=== PATIENT | female | born 1980 | race Caucasian/White ===

== ENCOUNTER → 2018-06-05 12:07 | Outpatient (CLI) | payer SELFPAY ==
--- NOTE | 2018-06-05 12:14 | US_ITS ---
STUDY: ULTRASOUND TRANSVAGINAL CLINICAL: Female, 38 years old. Enlarged uterus. TECHNIQUE: Transvaginal COMPARISON: None. FINDINGS: The uterus measures approximately 18.5 x 15.2 x 11.5 cm, enlarged. Anteverted position. Suspected large fibroid measuring 10.7 x 13.9 x 10.2 cm. Multiple nabothian cysts are clustered in the cervix. The endometrium is not well visualized. Likely obscured/compressed by the fibroid. The right ovary is not visible. There is no visualized right adnexal mass, cyst or free fluid. The right adnexa is partially obscured by the enlarged uterus. Left ovary measures 3.4 x 3.2 x 2.4 cm, partially obscured. There appears to be appropriate vascular flow to left ovary. There is no visible left adnexal mass, cyst or free fluid. There is no cul-de-sac free fluid. US/Pelvic (Non ) IMPRESSION: Enlarged uterus. Suspected large fibroid with a maximum dimension of 13.9 cm. Details of the right adnexa and in portions of the uterus are obscured by the transvaginal approach in the setting of markedly enlarged uterus. Follow-up transabdominal ultrasound for further assessment of the uterus and right adnexa is recommended. Electronically Signed: Joaquin Johnson, at 10:23 EST Tel , Service support ,
--- NOTE | 2018-06-05 12:15 | US_ITS ---
STUDY: ULTRASOUND TRANSVAGINAL CLINICAL: Female, 38 years old. Enlarged uterus. TECHNIQUE: Transvaginal COMPARISON: None. FINDINGS: The uterus measures approximately 18.5 x 15.2 x 11.5 cm, enlarged. Anteverted position. Suspected large fibroid measuring 10.7 x 13.9 x 10.2 cm. Multiple nabothian cysts are clustered in the cervix. The endometrium is not well visualized. Likely obscured/compressed by the fibroid. The right ovary is not visible. There is no visualized right adnexal mass, cyst or free fluid. The right adnexa is partially obscured by the enlarged uterus. Left ovary measures 3.4 x 3.2 x 2.4 cm, partially obscured. There appears to be appropriate vascular flow to left ovary. There is no visible left adnexal mass, cyst or free fluid. There is no cul-de-sac free fluid. US/Transvaginal Non- IMPRESSION: Enlarged uterus. Suspected large fibroid with a maximum dimension of 13.9 cm. Details of the right adnexa and in portions of the uterus are obscured by the transvaginal approach in the setting of markedly enlarged uterus. Follow-up transabdominal ultrasound for further assessment of the uterus and right adnexa is recommended. Electronically Signed: Joaquin Johnson, at 10:23 EST Tel , Service support ,
== END ==
PROVIDERS: Family Provider Family Medicine; PCP Family Medicine; Referring Provider Obstetrics & Gynecology; Visit Provider Obstetrics & Gynecology
DX: N85.2 Hypertrophy of uterus (principal)
CPT/HCPCS: 76830; 76856; 93976